=== PATIENT | male | born 1950 | race African-American/Black ===

== ENCOUNTER 2017-04-01 11:38 | Inpatient (IN) | payer MEDICARE ==
[~2017-04-01] VITALS: Ht 180.3 cm; Wt 108.4 kg
[2017-04-01 11:50] VITALS: BP 115/72
[2017-04-01] MEDS ORDERED: ATORVASTATIN CA20 MG ORAL (11:50)
[2017-04-01] MEDS ORDERED: ASPIR 8181 MG ORAL (11:50)
[2017-04-01] MEDS ORDERED: [UNRECOGNIZED DRUG - REMARK] (11:50)
--- NOTE | 2017-04-01 12:03 | Emergency Room Report ---
History of Present Illness General Chief Complaint: General Complaint Source: Patient Present Illness HPI 66-year-old male history of hypertension CAD with one stent p/w lightheadedness /funny feeling in chest for one day. Chest pain started while driving. Patient denies any obvious chest pain however states that when he had his heart attack last time this is how he felt. Complains of mild SOB. Denies palpitations, diaphoresis, n/v. Denies any headache, blurry vision, neck pain, has otherwise been eating and drinking well Allergies: Coded Allergies: No Known Allergies (Unverified , 04/01/17) Patient History Past Medical History: see triage record Past Surgical History: none Pertinent Family History: none Reviewed Nursing Documentation: PMH: Agreed, PSxH: Agreed Nursing Documentation-PMH Hx Cardiac Problems: Yes - [place] 02/2017; Stent Hx Hypertension: Yes Review of Systems All Other Systems: negative except mentioned in HPI Physical Exam Vital Signs Date Time Temp Pulse Resp B/P (MAP) Pulse Ox O2 Delivery O2 Flow Rate FiO2 04/01/17 11:44 98.1 79 18 115/72 100 Room Air Sp02 EP Interpretation: reviewed, normal General Appearance: normal inspection, well appearing, no apparent distress, alert, GCS 15, non-toxic Head: normocephalic, atraumatic Eyes: bilateral eye normal inspection, bilateral eye PERRL, bilateral eye EOMI ENT: normal ENT inspection, normal pharynx, normal voice, moist mucus membranes Neck: normal inspection, full range of motion, supple Respiratory: normal inspection, lungs clear, normal breath sounds, no respiratory distress, no retraction, no wheezing, speaking full sentences, chest symmetrical Cardiovascular #1: normal inspection, regular rate, rhythm, no edema, normal capillary refill Cardiovascular #2: 2+ radial (R), 2+ radial (L) Gastrointestinal: normal inspection, non tender, soft, non-distended, no guarding Genitourinary: no CVA tenderness Musculoskeletal: normal inspection, back normal, normal range of motion, non- tender Neurologic: normal inspection, alert, oriented x3, responsive, motor strength/ tone normal, sensory intact, normal gait, speech normal Psychiatric: normal inspection, judgement/insight normal, memory normal Skin: normal inspection, normal color, no rash, warm/dry, well hydrated, normal turgor Medical Decision Making Diagnostic Impression: Primary Impression: ACS (acute coronary syndrome) ER Course 66-year-old male with a CAD presenting with lightheadedness and"funny feeling in chest" DDX: ACS vs. CHF vs. pneumonia vs. gastritis/GERD vs. pneumothorax Dehydrational / electrolyte disturbance Plan: IV access, obtain labs including troponin, EKG, CXR ASA 162 (took a baby asa) Anticipate admission ER course: Labs: troponin negative Patient given ASA. Patient remained chest pain free during ED stay. Disposition: Patient will be admitted to telemetry unit Please note that this Emergency Department Report was dictated using [email or web address] [email or web address] software, occasionally this can lead to erroneous entry secondary to interpretation by the dictation equipment. Laboratory Tests Test 04/01/17 12:05 04/01/17 13:35 Sodium Level 141 mEQ/L (135-145) Potassium Level 4.7 mEQ/L (3.4-4.9) Chloride Level 102 mEQ/L (98-107) Carbon Dioxide Level 24 mEQ/L (20-30) Anion Gap 15 (5-15) Blood Urea Nitrogen 8 mg/dL (7-23) Creatinine 1.2 mg/dL (0.7-1.2) Estimate Glomerular Filtration Rate > 60 mL/min (>60) Glucose Level 110 mg/dL (74-106) H Calcium Level 9.3 mg/dL (8.6-10.2) Total Bilirubin 1.0 mg/dL (0.0-1.2) Aspartate Amino Transferase (AST) 20 U/L (5-40) Alanine Aminotransferase (ALT) 13 U/L (3-41) Alkaline Phosphatase 77 U/L (40-129) Total Creatine Kinase 236 U/L (38-174) H Creatine Kinase MB 3.3 ng/mL (< 6.7) Creatine Kinase MB Relative Index 1.3 Troponin I < 0.30 ng/mL (<=0.30) < 0.30 ng/mL (<=0.30) Pro-B-Type Natriuretic Peptide 207 pg/mL (0-125) H Total Protein 7.1 g/dL (6.6-8.7) Albumin 5.1 g/dL (3.5-5.2) Globulin 2.0 g/dL Albumin/Globulin Ratio 2.5 (1.0-2.7) White Blood Count 6.5 K/UL (4.8-10.8) Red Blood Count 4.77 M/UL (4.70-6.10) Hemoglobin 14.5 G/DL (14.2-18.0) Hematocrit 44.8 % (42.0-52.0) Mean Corpuscular Volume 94 FL (80-99) Mean Corpuscular Hemoglobin 30.3 PG (27.0-31.0) Mean Corpuscular Hemoglobin Concent 32.3 G/DL (32.0-36.0) Red Cell Distribution Width 12.5 % (11.6-14.8) Platelet Count 151 K/UL (150-450) Mean Platelet Volume 8.5 FL (6.5-10.1) Neutrophils (%) (Auto) 59.9 % (45.0-75.0) Lymphocytes (%) (Auto) 28.4 % (20.0-45.0) Monocytes (%) (Auto) 9.4 % (1.0-10.0) Eosinophils (%) (Auto) 1.2 % (0.0-3.0) Basophils (%) (Auto) 1.2 % (0.0-2.0) EKG Diagnostic Results Rate: normal Rhythm: NSR ST Segments: other - +PVCs, Q waves inf leads, L axis devation ASA given to the pt in ED: Yes Rhythm Strip Diag. Results EP Interpretation: yes Rate: 76 Rhythm: NSR, other - +PVCs Chest X-Ray Diagnostic Results Chest X-Ray Diagnostic Results : Chest X-Ray Ordered: Yes # of Views/Limited/Complete: 1 View Indication: Chest Pain EP Interpretation: Yes Interpretation: no consolidation, no effusion, no pneumothorax, no acute cardiopulmonary disease Impression: No acute disease Electronically Signed by: Electronically signed by Albertina Valerio MD Last Vital Signs Date Time Temp Pulse Resp B/P (MAP) Pulse Ox O2 Delivery O2 Flow Rate FiO2 04/01/17 11:44 98.1 79 18 115/72 100 Room Air Albertina Valerio M.D. Apr 01, 2017 12:03
[2017-04-01] MEDS ORDERED: Aspirin Baby 81mg ORAL ONE (12:15)
--- NOTE | 2017-04-01 12:19 | Diagnostic Imaging Report ---
Indication: PAIN Technique: One view of the chest Comparison: none Findings: Lungs and pleural spaces are clear. Heart size is normal Impression: No acute process
[2017-04-01 13:03] LABS: TROPONIN I < 0.30 ng/mL (<=0.30)
[2017-04-01 13:06] LABS: ALANINE AMINOTRANSFERASE 13 U/L (3-41); ALBUMIN/GLOBULIN RATIO 2.5 (1.0-2.7); ANION GAP 15 (5-15); ASPARTATE AMINO TRANSFERASE 20 U/L (5-40); CALCIUM 9.3 mg/dL (8.6-10.2); CARBON DIOXIDE 24 mEQ/L (20-30); CHLORIDE 102 mEQ/L (98-107); CREATININE 1.2 mg/dL (0.7-1.2); GLOMERULAR FILTRATION RATE > 60 mL/min (>60); HEMOLYSIS 84; POTASSIUM 4.7 mEQ/L (3.4-4.9); SODIUM 141 mEQ/L (135-145); TOTAL PROTEIN 7.1 g/dL (6.6-8.7)
[2017-04-01 13:16] LABS: CKMB 3.3 ng/mL (< 6.7)
[2017-04-01] MEDS ORDERED: Miralax 17gm pkt ORAL PRN (13:45)
[2017-04-01] MEDS ORDERED: Nitroglycerin Subl 0.4mg tab SL PRN (13:45)
[2017-04-01 13:50] VITALS: BP 112/73
[2017-04-01] MEDS ORDERED: DuoNeb 0.5-3(2.5)mg/3ml neb HHN PRN (14:00)
[2017-04-01] MEDS ORDERED: Enalaprilat 2.5mg/2ml Inj IV PRN (14:00)
[2017-04-01] MEDS ORDERED: Ketorolac 30mg Inj IV PRN (14:00)
[2017-04-01] MEDS ORDERED: Diltiazem 25mg/5ml IV PRN (14:00)
[2017-04-01] MEDS ORDERED: Morphine Sulfate 2mg/ml Inj IVP PRN (14:00)
[2017-04-01 14:09] LABS: BASOPHILS % (AUTO) 1.2 % (0.0-2.0); EOSINOPHILS % (AUTO) 1.2 % (0.0-3.0); LYMPHOCYTES % (AUTO) 28.4 % (20.0-45.0); MEAN CORPUSCULAR HEMOGLOBIN 30.3 PG (27.0-31.0); MEAN CORPUSCULAR HGB CONC 32.3 G/DL (32.0-36.0); MEAN CORPUSCULAR VOLUME 94 FL (80-99); MEAN PLATELET VOLUME 8.5 FL (6.5-10.1); MONOCYTES % (AUTO) 9.4 % (1.0-10.0); NEUTROPHILS % (AUTO) 59.9 % (45.0-75.0); PLATELET COUNT 151 K/UL (150-450); RED BLOOD COUNT 4.77 M/UL (4.70-6.10); RED CELL DISTRIBUTION WIDTH 12.5 % (11.6-14.8); WHITE BLOOD COUNT 6.5 K/UL (4.8-10.8)
[2017-04-01 14:22] LABS: TROPONIN I < 0.30 ng/mL (<=0.30)
[2017-04-01 14:55] VITALS: BP 136/86
[2017-04-01 16:00] VITALS: BP 119/73
[2017-04-01 20:07] VITALS: BP 104/70
[2017-04-01] MEDS: Heparin 5000 units/ml inj SUBQ SCH (21:00)
[2017-04-01] MEDS ORDERED: Atorvastatin 20mg tab ORAL SCH (21:00)
[2017-04-01] MEDS ORDERED: TURMERIC 500 M1 EACH PO (21:29)
[2017-04-01] MEDS ORDERED: PLAVIX75 MG ORAL (21:29)
[2017-04-01] MEDS ORDERED: LIPITOR40 MG ORAL (21:29)
[2017-04-01] MEDS ORDERED: LOSARTAN POTASS50 MG ORAL (21:29)
--- NOTE | 2017-04-01 22:03 | History and Physical ---
History of Present Illness General Date patient seen: Apr 01, 2017 Reason for Hospitalization: General Complaint Present Illness HPI 66-year-old male history of hypertension CAD with one stent p/w lightheadedness /funny feeling in chest for one day. Patient denies any obvious chest pain however states that when he had his heart attack last time this is how he felt. Complains of mild SOB. Denies palpitations, diaphoresis, n/v. He is admitted to telemetry for further management. Allergies: Coded Allergies: No Known Allergies (Unverified , 04/01/17) Medication History Scheduled Aspirin* (Aspir 81*), 81 MG ORAL DAILY, (Reported) Atorvastatin Calcium* (Atorvastatin Calcium*), 20 MG ORAL DAILY, (Reported) Atorvastatin Calcium* (Lipitor*), 40 MG ORAL BEDTIME, (Reported) Clopidogrel Bisulfate* (Plavix*), 75 MG ORAL DAILY, (Reported) Losartan Potassium* (Losartan Potassium*), 50 MG ORAL DAILY, (Reported) Miscellaneous Medications Turmeric/Turmeric Root Extract (Turmeric 500 Mg Capsule), 1 EACH PO, (Reported) ["New anticoagulant"], (Reported) Patient History Healthcare decision maker self Resuscitation status Full Code Advanced Directive on File Past Medical/Surgical History Past Medical/Surgical History: (1) CAD (coronary artery disease) (2) Stented coronary artery Review of Systems All Other Systems: negative except mentioned in HPI Physical Exam General Appearance: WD/WN Lines, tubes and drains: peripheral HEENT: normocephalic, atraumatic Neck: non-tender, normal alignment Respiratory/Chest: chest wall non-tender, lungs clear Breasts: no masses Cardiovascular/Chest: normal peripheral pulses, normal rate Genitourinary/Rectal: normal genital exam Extremities: normal range of motion Last 24 Hour Vital Signs Date Time Temp Pulse Resp B/P (MAP) Pulse Ox O2 Delivery O2 Flow Rate FiO2 04/01/17 20:07 97.3 63 20 104/70 100 Room Air 04/01/17 16:00 76 04/01/17 16:00 97.3 79 20 119/73 100 Room Air 04/01/17 15:05 66 11 136/86 Room Air 04/01/17 14:55 98.3 66 11 136/86 100 Room Air 04/01/17 13:50 98.2 74 16 112/73 100 Room Air 04/01/17 11:50 98.2 82 16 115/72 100 Room Air 04/01/17 11:44 98.1 79 18 115/72 100 Room Air Intake and Output 04/01/17 04/02/17 19:00 07:00 Intake Total 0 ml Balance 0 ml Intake Oral 0 ml # Voids 1 Laboratory Tests Test 04/01/17 12:05 04/01/17 13:35 Sodium Level 141 mEQ/L (135-145) Potassium Level 4.7 mEQ/L (3.4-4.9) Chloride Level 102 mEQ/L (98-107) Carbon Dioxide Level 24 mEQ/L (20-30) Anion Gap 15 (5-15) Blood Urea Nitrogen 8 mg/dL (7-23) Creatinine 1.2 mg/dL (0.7-1.2) Estimat Glomerular Filtration Rate > 60 mL/min (>60) Glucose Level 110 mg/dL (74-106) H Calcium Level 9.3 mg/dL (8.6-10.2) Total Bilirubin 1.0 mg/dL (0.0-1.2) Aspartate Amino Transf (AST/SGOT) 20 U/L (5-40) Alanine Aminotransferase (ALT/SGPT) 13 U/L (3-41) Alkaline Phosphatase 77 U/L (40-129) Total Creatine Kinase 236 U/L (38-174) H Creatine Kinase MB 3.3 ng/mL (< 6.7) Creatine Kinase MB Relative Index 1.3 Troponin I < 0.30 ng/mL (<=0.30) < 0.30 ng/mL (<=0.30) Pro-B-Type Natriuretic Peptide 207 pg/mL (0-125) H Total Protein 7.1 g/dL (6.6-8.7) Albumin 5.1 g/dL (3.5-5.2) Globulin 2.0 g/dL Albumin/Globulin Ratio 2.5 (1.0-2.7) White Blood Count 6.5 K/UL (4.8-10.8) Red Blood Count 4.77 M/UL (4.70-6.10) Hemoglobin 14.5 G/DL (14.2-18.0) Hematocrit 44.8 % (42.0-52.0) Mean Corpuscular Volume 94 FL (80-99) Mean Corpuscular Hemoglobin 30.3 PG (27.0-31.0) Mean Corpuscular Hemoglobin Concent 32.3 G/DL (32.0-36.0) Red Cell Distribution Width 12.5 % (11.6-14.8) Platelet Count 151 K/UL (150-450) Mean Platelet Volume 8.5 FL (6.5-10.1) Neutrophils (%) (Auto) 59.9 % (45.0-75.0) Lymphocytes (%) (Auto) 28.4 % (20.0-45.0) Monocytes (%) (Auto) 9.4 % (1.0-10.0) Eosinophils (%) (Auto) 1.2 % (0.0-3.0) Basophils (%) (Auto) 1.2 % (0.0-2.0) Height (Feet): 5 Height (Inches): 11.00 Weight (Pounds): 239 Medications Current Medications Medications (Trade) Dose Ordered Sig/Michaela Route PRN Reason Start Time Stop Time Status Last Admin Dose Admin Acetaminophen (Tylenol) 650 mg Q4H PRN ORAL FEVER>100.5 04/01/17 13:45 05/01/17 13:44 Albuterol/ Ipratropium (DuoNeb 0.5-3(2.5)mg/3ml) 3 ml Q4H PRN HHN Shortness of Breath 04/01/17 14:00 04/06/17 13:59 Aspirin (ASA) 162 mg DAILY ORAL 04/02/17 09:00 05/02/17 08:59 Atorvastatin Calcium (Lipitor) 20 mg BEDTIME ORAL 04/01/17 21:00 05/01/17 20:59 Diltiazem HCl (Cardizem) 10 mg Q1H PRN IV heart rate more than 120, 04/01/17 14:00 05/01/17 13:59 Enalaprilat (Vasotec) 2.5 mg Q6H PRN IV sbp more than 160 04/01/17 14:00 05/01/17 13:59 Heparin Sodium (Porcine) (Heparin 5000 units/ml) 5,000 units EVERY 12 HOURS SUBQ 04/01/17 21:00 05/01/17 20:59 Ketorolac Tromethamine (Toradol 30mg) 30 mg Q6H PRN IV moderate pain ( 4-6) 04/01/17 14:00 04/06/17 13:59 Morphine Sulfate (Morphine Sulfate) 2 mg Q4H PRN IVP severe Pain (Pain Scale 7-10) 04/01/17 14:00 04/08/17 13:59 Nitroglycerin (Ntg) 0.4 mg Q5M PRN SL Prn Chest Pain 04/01/17 13:45 05/01/17 13:44 Ondansetron HCl (Zofran) 4 mg Q6H PRN IVP Nausea & Vomiting 04/01/17 13:45 05/01/17 13:44 Pantoprazole (Protonix) 40 mg ACBREAKFAST ORAL 04/02/17 09:00 05/02/17 08:59 Polyethylene Glycol (Miralax) 17 gm DAILYPRN PRN ORAL Constipation 04/01/17 13:45 05/01/17 13:44 Temazepam (Restoril) 15 mg HSPRN PRN ORAL Insomnia 04/01/17 21:00 04/08/17 20:59 Assessment/Plan Problem List: (1) ACS (acute coronary syndrome) ICD Codes: I24.9 - Acute ischemic heart disease, unspecified SNOMED: 358246780 (2) CAD (coronary artery disease) ICD Codes: I25.10 - Atherosclerotic heart disease of [place]reafski coronary artery without angina pectoris SNOMED: 43170789 (3) Stented coronary artery ICD Codes: Z95.5 - Presence of coronary angioplasty implant and graft SNOMED: 82229424, 013499766 (4) Costochondritis ICD Codes: M94.0 - Chondrocostal junction syndrome [Tietze] SNOMED: 04237764 Assessment/Plan serial ekg, troponin echo cardio evaluation monitor bp IVETTTRENTON MERCHANTFABIO Apr 01, 2017 22:03
[2017-04-02 00:25] VITALS: BP 119/69
[2017-04-02 04:00] VITALS: BP 109/71
[2017-04-02 07:09] LABS: BASOPHILS % (AUTO) 1.4 % (0.0-2.0); EOSINOPHILS % (AUTO) 1.7 % (0.0-3.0); LYMPHOCYTES % (AUTO) 34.3 % (20.0-45.0); MEAN CORPUSCULAR HGB CONC 32.9 G/DL (32.0-36.0); MEAN CORPUSCULAR VOLUME 94 FL (80-99); MEAN PLATELET VOLUME 8.9 FL (6.5-10.1); MONOCYTES % (AUTO) 12.2 % (1.0-10.0); NEUTROPHILS % (AUTO) 50.4 % (45.0-75.0); PLATELET COUNT 133 K/UL (150-450); RED BLOOD COUNT 4.43 M/UL (4.70-6.10); RED CELL DISTRIBUTION WIDTH 12.5 % (11.6-14.8); WHITE BLOOD COUNT 6.2 K/UL (4.8-10.8)
[2017-04-02 07:27] LABS: CHOLESTEROL 109 mg/dL (< 200); CHOLESTEROL/HDL RATIO 2.5 (3.3-4.4); CRP QUANT < 0.3 mg/dL (< 0.5); HEMOLYSIS 8; LDL CHOLESTEROL (CALC.) 52 mg/dL (60-99)
[2017-04-02 07:39] LABS: PROTHROMBIN TIME 10.3 SEC (9.30-11.50)
[2017-04-02 07:45] LABS: TROPONIN I < 0.30 ng/mL (<=0.30)
[2017-04-02 07:48] LABS: THYROID STIMULATING HORMONE 0.811 uIU/mL (0.300-4.500)
[2017-04-02 08:00] VITALS: BP 105/65
[2017-04-02] MEDS: Heparin 5000 units/ml inj SUBQ SCH (09:00)
[2017-04-02] MEDS ORDERED: Aspirin Baby 81mg ORAL SCH (09:00)
[2017-04-02 12:00] VITALS: BP 121/69
--- NOTE | 2017-04-02 12:31 | Pulmonology Progress Note ---
Assessment/Plan Problems: (1) ACS (acute coronary syndrome) (2) CAD (coronary artery disease) (3) Stented coronary artery (4) Costochondritis Assessment/Plan enzymes are negative echo done results pending monitor bp awaiting cardiology resume Plavix Subjective ROS Limited/Unobtainable: No Interval Events: no ne events. Allergies: Coded Allergies: No Known Allergies (Unverified , 04/01/17) Objective Last 24 Hour Vital Signs Date Time Temp Pulse Resp B/P (MAP) Pulse Ox O2 Delivery O2 Flow Rate FiO2 04/02/17 12:00 97.0 79 21 121/69 98 Room Air 04/02/17 09:00 57 04/02/17 08:00 97.5 58 20 105/65 97 Room Air 04/02/17 07:57 58 20 Room Air 04/02/17 04:00 55 04/02/17 04:00 97.7 65 20 109/71 100 Room Air 04/02/17 00:25 97.0 72 20 119/69 99 Room Air 04/02/17 00:00 64 04/01/17 20:07 97.3 63 20 104/70 100 Room Air 04/01/17 20:00 66 04/01/17 19:30 60 20 Room Air 04/01/17 16:00 76 04/01/17 16:00 97.3 79 20 119/73 100 Room Air 04/01/17 15:05 66 11 136/86 Room Air 04/01/17 14:55 98.3 66 11 136/86 100 Room Air 04/01/17 13:50 98.2 74 16 112/73 100 Room Air General Appearance: WD/WN HEENT: normocephalic, atraumatic Respiratory/Chest: chest wall non-tender, lungs clear Cardiovascular: normal peripheral pulses, normal rate Abdomen: normal bowel sounds, soft, non tender Genitourinary: normal external genitalia Extremities: no clubbing Neurologic/Psychiatric: insole presser II-XII grossly normal, no motor/sensory deficits Lymphatic: no neck adenopathy Laboratory Tests 04/01/17 13:35: White Blood Count 6.5, Red Blood Count 4.77, Hemoglobin 14.5, Hematocrit 44.8, Mean Corpuscular Volume 94, Mean Corpuscular Hemoglobin 30.3, Mean Corpuscular Hemoglobin Concent 32.3, Red Cell Distribution Width 12.5, Platelet Count 151, Mean Platelet Volume 8.5, Neutrophils (%) (Auto) 59.9, Lymphocytes (%) (Auto) 28.4, Monocytes (%) (Auto) 9.4, Eosinophils (%) (Auto) 1.2, Basophils (%) (Auto ) 1.2, Troponin I < 0.30 04/02/17 06:25: White Blood Count 6.2, Red Blood Count 4.43L, Hemoglobin 13.7L, Hematocrit 41.7L , Mean Corpuscular Volume 94, Mean Corpuscular Hemoglobin 31.0, Mean Corpuscular Hemoglobin Concent 32.9, Red Cell Distribution Width 12.5, Platelet Count 133L, Mean Platelet Volume 8.9, Neutrophils (%) (Auto) 50.4, Lymphocytes ( %) (Auto) 34.3, Monocytes (%) (Auto) 12.2H, Eosinophils (%) (Auto) 1.7, Basophils (%) (Auto) 1.4, Troponin I < 0.30, Prothrombin Time 10.3, Prothromb Time International Ratio 1.0, Activated Partial Thromboplast Time 25, C- Reactive Protein, Quantitative < 0.3, Triglycerides Level 69, Cholesterol Level 109, LDL Cholesterol 52L, HDL Cholesterol 43, Cholesterol/HDL Ratio 2.5L, Thyroid Stimulating Hormone (TSH) 0.811 Current Medications Medications (Trade) Dose Ordered Sig/Michaela Route PRN Reason Start Time Stop Time Status Last Admin Dose Admin Acetaminophen (Tylenol) 650 mg Q4H PRN ORAL FEVER>100.5 04/01/17 13:45 05/01/17 13:44 Albuterol/ Ipratropium (DuoNeb 0.5-3(2.5)mg/3ml) 3 ml Q4H PRN HHN Shortness of Breath 04/01/17 14:00 04/06/17 13:59 Aspirin (ASA) 162 mg DAILY ORAL 04/02/17 09:00 05/02/17 08:59 04/02/17 08:40 Atorvastatin Calcium (Lipitor) 20 mg BEDTIME ORAL 04/01/17 21:00 05/01/17 20:59 Atorvastatin Calcium (Lipitor) 20 mg BEDTIME ORAL 04/02/17 21:00 05/02/17 20:59 UNV Atorvastatin Calcium (Lipitor) 40 mg BEDTIME ORAL 04/02/17 21:00 05/02/17 20:59 UNV Clopidogrel Bisulfate (Plavix) 75 mg DAILY ORAL 04/02/17 12:30 05/02/17 12:29 UNV Clopidogrel Bisulfate (Plavix) 75 mg DAILY ORAL 04/03/17 09:00 05/03/17 08:59 UNV Diltiazem HCl (Cardizem) 10 mg Q1H PRN IV heart rate more than 120, 04/01/17 14:00 05/01/17 13:59 Enalaprilat (Vasotec) 2.5 mg Q6H PRN IV sbp more than 160 04/01/17 14:00 05/01/17 13:59 Heparin Sodium (Porcine) (Heparin 5000 units/ml) 5,000 units EVERY 12 HOURS SUBQ 04/01/17 21:00 05/01/17 20:59 Ketorolac Tromethamine (Toradol 30mg) 30 mg Q6H PRN IV moderate pain ( 4-6) 04/01/17 14:00 04/06/17 13:59 Losartan Potassium (Cozaar) 50 mg DAILY ORAL 04/02/17 12:30 05/02/17 12:29 UNV Losartan Potassium (Cozaar) 50 mg DAILY ORAL 04/03/17 09:00 05/03/17 08:59 UNV Morphine Sulfate (Morphine Sulfate) 2 mg Q4H PRN IVP severe Pain (Pain Scale 7-10) 04/01/17 14:00 04/08/17 13:59 Nitroglycerin (Ntg) 0.4 mg Q5M PRN SL Prn Chest Pain 04/01/17 13:45 05/01/17 13:44 Ondansetron HCl (Zofran) 4 mg Q6H PRN IVP Nausea & Vomiting 04/01/17 13:45 05/01/17 13:44 Pantoprazole (Protonix) 40 mg ACBREAKFAST ORAL 04/02/17 09:00 05/02/17 08:59 Polyethylene Glycol (Miralax) 17 gm DAILYPRN PRN ORAL Constipation 04/01/17 13:45 05/01/17 13:44 Temazepam (Restoril) 15 mg HSPRN PRN ORAL Insomnia 04/01/17 21:00 04/08/17 20:59 CHEMA ASHLEY Apr 02, 2017 12:31
[2017-04-02] MEDS ORDERED: Losartan 50mg tab ORAL SCH (13:30)
--- NOTE | 2017-04-02 15:29 | Cardiology Progress Note ---
Assessment/Plan Assessment/Plan cad no sx to suggest acs all torp neg no sx similar to angel luis jimenesw with electroencephalograph technician [id number] Objective Last 24 Hour Vital Signs Date Time Temp Pulse Resp B/P (MAP) Pulse Ox O2 Delivery O2 Flow Rate FiO2 04/02/17 13:33 121/69 04/02/17 12:00 97.0 79 21 121/69 98 Room Air 04/02/17 09:00 57 04/02/17 08:00 97.5 58 20 105/65 97 Room Air 04/02/17 07:57 58 20 Room Air 21 04/02/17 04:00 55 04/02/17 04:00 97.7 65 20 109/71 100 Room Air 04/02/17 00:25 97.0 72 20 119/69 99 Room Air 04/02/17 00:00 64 04/01/17 20:07 97.3 63 20 104/70 100 Room Air 04/01/17 20:00 66 04/01/17 19:30 60 20 Room Air 04/01/17 16:00 76 04/01/17 16:00 97.3 79 20 119/73 100 Room Air Laboratory Tests Test 04/02/17 06:25 White Blood Count 6.2 K/UL (4.8-10.8) Red Blood Count 4.43 M/UL (4.70-6.10) L Hemoglobin 13.7 G/DL (14.2-18.0) L Hematocrit 41.7 % (42.0-52.0) L Mean Corpuscular Volume 94 FL (80-99) Mean Corpuscular Hemoglobin 31.0 PG (27.0-31.0) Mean Corpuscular Hemoglobin Concent 32.9 G/DL (32.0-36.0) Red Cell Distribution Width 12.5 % (11.6-14.8) Platelet Count 133 K/UL (150-450) L Mean Platelet Volume 8.9 FL (6.5-10.1) Neutrophils (%) (Auto) 50.4 % (45.0-75.0) Lymphocytes (%) (Auto) 34.3 % (20.0-45.0) Monocytes (%) (Auto) 12.2 % (1.0-10.0) H Eosinophils (%) (Auto) 1.7 % (0.0-3.0) Basophils (%) (Auto) 1.4 % (0.0-2.0) Prothrombin Time 10.3 SEC (9.30-11.50) Prothromb Time International Ratio 1.0 (0.9-1.1) Activated Partial Thromboplast Time 25 SEC (23-33) Troponin I < 0.30 ng/mL (<=0.30) C-Reactive Protein, Quantitative < 0.3 mg/dL (< 0.5) Triglycerides Level 69 mg/dL (< 150) Cholesterol Level 109 mg/dL (< 200) LDL Cholesterol 52 mg/dL (60-99) L HDL Cholesterol 43 mg/dL (> 60) Cholesterol/HDL Ratio 2.5 (3.3-4.4) L Thyroid Stimulating Hormone (TSH) 0.811 uIU/mL (0.300-4.500) CURT ROB Apr 02, 2017 15:29
[2017-04-02 16:00] VITALS: BP 106/66
[2017-04-02] MEDS ORDERED: Atorvastatin 80mg tab ORAL SCH (21:00)
[2017-04-02] MEDS ORDERED: Atorvastatin 20mg tab ORAL SCH (21:00)
[2017-04-03] MEDS ORDERED: Losartan 50mg tab ORAL SCH (09:00)
--- NOTE | 2017-04-03 09:45 | Consultation ---
DATE OF CONSULTATION: 04/02/2017 CONSULTING PHYSICIAN: Justin Huizar M.D. REFERRING PHYSICIAN: Gerda Rudolph M.D. REASON FOR REFERRAL: Coronary disease. History Of Present Illness: This is a 66-year-old gentleman, who presented to the emergency room while driving to his doctor's office to get a paper to take to to get a referral to a money market dealer as a followup. On the way down here, he was not feeling right. He was concerned, so he pulled up to the drive in the emergency room and he was subsequently admitted. He really does not have any pain, pressure, tightness, or heaviness in his chest. In fact, a month ago or so, he was driving and he developed some abnormal sensation and subsequently had some tightness and heaviness in his chest. He drove in to the [facility] and asked for help. Paramedics were summoned. They told him he was having a heart attack and apparently was taken to the emergency room at [facility] where he subsequently underwent placement of two stents and he was discharged in combination of aspirin, statins, as well as Brilinta, which he has been compliant with. At this time, he has not had any chest pain, pressure, tightness, heaviness, or whatsoever in his chest. He just felt very anxious about his situation and wanted to be . He is fine right now. There is no PND. No orthopnea. No palpitation. No dizziness or lightheadedness. Past Medical History: Positive for coronary artery disease as mentioned with coronary artery stenting. No history of [place]. No diabetes. He may have had some high blood pressure. He may have had some high cholesterol. No cancer, stroke, hepatitis, tuberculosis, asthma, or emphysema. No ulcers, kidney problems, liver problems, thyroid problems, anemia, arthritis, blood clots, human immunodeficiency virus, AIDS, prostate, or any other problems. He has had a history of tonsillitis previously and he has had some jaundice previously apparently as well. ALLERGIES: He is not allergic to any medications. Social History: He does not smoke. Does not drink. He works as a sewage plant attendant. Review Of Systems: Gastrointestinal: Negative. Genitourinary: Negative. Pulmonary: Negative. Constitutional: Negative. Neurologic: Negative. PHYSICAL EXAMINATION: General: Shows to be a middle-aged gentleman, in no respiratory distress. Neck: Supple. No jugular venous distention. No abdominojugular reflux. LUNGS: Clear to auscultation and percussion. Cardiac: S1 is normal. S2 is normal. Regular rate and rhythm. No heaves, thrills, gallops, or rubs are noted. ABDOMEN: Soft and nontender. Positive bowel sounds. EXTREMITY: There is no clubbing, cyanosis, nor is there any edema. Neurological: He is awake, alert, and responsive. Moves all four extremities. Laboratory And Diagnostic Data: Electrocardiogram shows normal sinus rhythm with possibly Q waves in the inferior leads, III and aVF, otherwise no other significant abnormalities. There is no ST or T-wave abnormalities. White count 6.3, hemoglobin 13.7, and platelet count up at 133,000. His sodium is 141, potassium 4.7, chloride 102, bicarb 24, BUN of 8, creatinine 1.2, and glucose of 110. His calcium is 9.3. CK of 236. Three sets of cardiac enzymes are all negative. His CRP is normal. His proBNP is only 200. Total cholesterol 109 with a LDL of 52 and HDL of 43. TSH is 0.81. His coags, INR is 1.0 and PTT of 25. He had a chest x-ray performed in the emergency room that showed no acute processes. His telemetry data shows sinus rhythm. He has had some wide complex rhythms, approximately 6 to 7 beats at 2350, otherwise no other significant abnormalities have been noted. ASSESSMENT: 1. Coronary disease history, status post percutaneous coronary intervention. 2. Anxiety. Plan: This patient presented to the hospital not because of symptoms of coronary disease, in fact, he absolutely denies any symptoms similar to what he has had on prior evaluation and the relative diagnosis of his coronary disease and coronary ischemia. He had no symptoms whatsoever. He feels that he was anxious. His three sets of cardiac enzymes were all negative. His EKGs do not show any acute changes. He needs to be back on his aspirin and Brilinta for sure as well as his statins. He was instructed to follow up with the money market dealer that was assigned to him through his insurance company. There is no further acute need for hospitalization as no significant abnormalities have been found and he had recently had a coronary event treated and he has no coronary symptoms at this time. Justin Huizar M.D. DR: MIRNA JOB#: [id number] CC:
--- NOTE | 2017-04-04 07:22 | Discharge Summary ---
Discharge Summary Hospital Course Date of Admission Apr 01, 2017 at 12:51 Date of Discharge Apr 02, 2017 at 17:05 Admitting Diagnosis ACS HPI Tobi Martinez is a 66 year old male who was admitted on Apr 01, 2017 at 12:51 for Acute Coronary Syndrome Hospital Course [id number] Discharge Discharge Disposition Patient was discharged to Home (01) Discharge Diagnoses: Judith rFederick NP Apr 04, 2017 07:22
--- NOTE | 2017-04-04 16:13 | Cardiology Report ---
APPROVED REPORT EXAM: Two-dimensional and M-mode echocardiogram with Doppler and color Doppler. INDICATION Left ventricular function M-Mode DIMENSIONS IVSd0.9 (0.7-1.1cm)Left Atrium (MM)2.8 (1.6-4.0cm) LVDd5.0 (3.5-5.6cm)Aortic Root3.5 (2.0-3.7cm) PWd1.3 (0.7-1.1cm)Aortic Cusp Exc.1.6 (1.5-2.0cm) LVDs2.7 (2.5-4.0cm) PWs2.0 cm Technically limited and difficult study due to poor acoustical windows. Normal left ventricular chamber size, systolic function and wall motion. Left ventricular ejection fraction estimated to be 55-60%. No evidence of left ventricular hypertrophy. No evidence of pericardial or pleural effusion. All other cardiac chamber sizes are within normal limits. Focal aortic valve sclerosis with adequate cusp excursion. Thickened mitral valve leaflets with normal excursion. Mild mitral annulus and aortic root calcification. Pulmonic valve not well visualized. Normal tricuspid valve structure. IVC is not obtainable. A color flow and spectral Doppler study was performed and revealed: No aortic regurgitation. No mitral regurgitation. Mitral diastolic velocities suggest reduced left ventricular relaxation c/w diastolic dysfunction grade 1. No tricuspid regurgitation.
--- NOTE | 2017-04-05 02:15 | Discharge Summary 2 SIG ---
DATE OF ADMISSION: 04/01/2017 DATE OF DISCHARGE: 04/02/2017 CORRECTIONS CORPORAL: Justin Huizar M.D. Brief Hospital Course: The patient is a 66-year-old male with history of hypertension and coronary artery disease with stent placement, complained of lightheadedness and funny feeling on the chest for one day. He did have some mild shortness of breath, but denied palpitations, diaphoresis, nausea, or vomiting. On evaluation at ED, the patient was given aspirin. Troponin was negative. He was chest pain free during stay at ED, however due to his risks for acute coronary syndrome, the patient was admitted to telemetry for further monitoring. EKG was in normal sinus rhythm with premature ventricular contractions and Q-waves in the inferior leads. Chest x-ray showed no consolidation, no effusion, and no pneumothorax with no acute cardiopulmonary disease. He was evaluated by Dr. Huizar. The patient has been compliant with his aspirin, statin, and Brillinta. Cholesterol panel was checked. LDL was 52 and HDL 43. TSH normal. Telemetry data showed sinus rhythm with wide complex rhythms, otherwise no significant abnormalities. Three troponins have been negative. Symptoms are not similar to prior myocardial infarction attack. He was advised to follow up with early childhood education specialist. Due to rapid unexpected improvement in the patient's symptoms and negative work-up, the patient was discharged home. Advised to follow up with early childhood education specialist. FINAL DIAGNOSES: 1. Coronary artery disease. 2. Anxiety. 3. Costochondritis. Disposition: The patient was discharged home. Follow up with early childhood education specialist in a week. DISCHARGE MEDICATIONS: Refer to med list. ACTIVITY: As tolerated. Gerda Rudolph M.D. I have been assigned to dictate discharge summary on this account and I was not involved in the patient's management. Judith Frederick N.P. DR: TAHIRA JOB#: [id number] CC: ALIDA
== END 2017-04-02 17:05 | disposition home or self-care (01) | DRG 206 ==
LOC: EMR 12:37 → 2E 12:51 → EDBEDREQ 13:05
DX: M94.0 Chondrocostal junction syndrome [Tietze] (principal); I10 Essential (primary) hypertension; Z95.5 Presence of coronary angioplasty implant and graft; F41.9 Anxiety disorder, unspecified; I25.10 Atherosclerotic heart disease of native coronary artery without angina pectoris
CPT/HCPCS: 36415; 71010; 80053; 80061; 82550; 82553; 83880; 84443; 84484; 85025; 85610; 85730; 86140; 93005; 93306; 94664; 99285

== ENCOUNTER 2018-12-08 12:46 | Emergency (ER) | payer SELFPAY ==
[~2018-12-08] VITALS: Ht 180.3 cm; Wt 115.2 kg
[~2018-12-08 12:46] MED LIST: ASPIR 8181 MG ORAL; ATORVASTATIN CA20 MG ORAL; LIPITOR40 MG ORAL; LOSARTAN POTASS50 MG ORAL; PLAVIX75 MG ORAL; TURMERIC 500 M1 EACH PO; [UNRECOGNIZED DRUG - REMARK]
--- NOTE | 2018-12-08 13:00 | NUR ---
CAME IN BY RESCUE WITH COMPLAINTS HE THINK HIS BLOOD PRESSURE IS HIGH . DENIES ANY SYMPTOMS
--- NOTE | 2018-12-08 13:20 | NUR ---
LABS DONE SALINE LOCK IN PLACE .
[2018-12-08 13:33] LABS: APPEARANCE,URINE CLEAR; BILIRUBIN, URINE NEGATIVE (NEGATIVE); COLOR,URINE PALE YELLOW; GLUCOSE, URINE (UA) NEGATIVE (NEGATIVE); KETONES,URINE NEGATIVE (NEGATIVE); LEUKOCYTE ESTERASE ,URINE NEGATIVE (NEGATIVE); NITRITE,URINE NEGATIVE (NEGATIVE); PH,URINE 5 (4.5-8.0); PROTEIN,URINE NEGATIVE (NEGATIVE); UROBILINOGEN,URINE NORMAL MG/DL (0.0-1.0)
[2018-12-08 13:34] LABS: BASOPHILS % (AUTO) 2.3 % (0.0-2.0); HEMATOCRIT 47.9 % (42.0-52.0); HEMOGLOBIN 15.8 G/DL (14.2-18.0); MEAN CORPUSCULAR VOLUME 93 FL (80-99); MONOCYTES % (AUTO) 8.4 % (1.0-10.0); NEUTROPHILS % (AUTO) 51.3 % (45.0-75.0); PLATELET COUNT 200 K/UL (150-450); RED BLOOD COUNT 5.15 M/UL (4.70-6.10); RED CELL DISTRIBUTION WIDTH 12.7 % (11.6-14.8); WHITE BLOOD COUNT 5.9 K/UL (4.8-10.8)
[2018-12-08 13:45] LABS: ANION GAP 7 mmol/L (5-15); BLOOD UREA NITROGEN 12 mg/dL (7-18); CALCIUM 9.5 MG/DL (8.5-10.1); CARBON DIOXIDE 32 MMOL/L (21-32); CHLORIDE 103 MMOL/L (98-107); CREATININE 1.1 MG/DL (0.55-1.30); POTASSIUM 3.6 MMOL/L (3.5-5.1); SODIUM 142 MMOL/L (136-145)
[2018-12-08 13:58] LABS: ALANINE AMINOTRANSFERASE 32 U/L (12-78); ALBUMIN 4.1 G/DL (3.4-5.0); ALKALINE PHOSPHATASE 72 U/L (46-116); ASPARTATE AMINO TRANSFERASE 17 U/L (15-37); BILIRUBIN,TOTAL 0.7 MG/DL (0.2-1.0); CREATINE KINASE 217 U/L (26-308)
[2018-12-08 14:06] VITALS: BP 121/88
--- NOTE | 2018-12-08 14:15 | Emergency Room Report ---
History of Present Illness General Chief Complaint: General Complaint Source: Patient Present Illness HPI Patient presents with blood pressure out of control. He's been taking varying doses of his medication. He alleges that his doctors told him he take it 25, 50 , or 100 mg based on what his blood pressure is. He has some dizziness after taking large doses of this. His blood pressures been already down to 117 at times. He denies any chest pain, headache. He denies any diabetes or renal failure in the past. His blood pressure machine broke and therefore he he's been unable to manage to control that he has in the past. He called paramedics and they transported him. His blood pressure was high. An EKG was performed. It had nonspecific ST-T wave changes. No fevers, chills, chest pain, palpitations, nausea, vomiting, diarrhea, dysuria , abdominal pain, shortness of breath, depression, visual changes, headache. Clear after stent placement he was on Plavix he is no longer taking this medication. He does take baby aspirin. Allergies: Coded Allergies: No Known Allergies (Unverified , 04/01/17) Patient History Past Medical History: see triage record Past Surgical History: PTCA Pertinent Family History: HTN Social History: Denies: smoking, alcohol use, drug use Social History Narrative [place] Reviewed Nursing Documentation: PMH: Agreed; PSxH: Agreed Nursing Documentation-PMH Hx Cardiac Problems: Yes - [place] 02/2017; Stent Hx Hypertension: Yes Review of Systems All Other Systems: negative except mentioned in HPI Physical Exam Vital Signs Date Time Temp Pulse Resp B/P (MAP) Pulse Ox O2 Delivery O2 Flow Rate FiO2 12/08/18 12:41 98.1 78 18 151/103 (119) 98 Room Air Sp02 EP Interpretation: reviewed, normal General Appearance: well appearing, no apparent distress, GCS 15 Head: normocephalic, atraumatic Eyes: bilateral eye normal inspection, bilateral eye PERRL, bilateral eye EOMI ENT: moist mucus membranes Neck: supple Respiratory: lungs clear, normal breath sounds Cardiovascular #1: regular rate, rhythm Cardiovascular #2: 2+ radial (R) Gastrointestinal: normal inspection, normal bowel sounds, non tender, no mass, non-distended, overweight Genitourinary: no CVA tenderness Musculoskeletal: back normal, gait/station normal, normal range of motion Neurologic: alert, oriented x3, grossly normal Psychiatric: anxious Skin: normal inspection, warm/dry Medical Decision Making Diagnostic Impression: Primary Impression: HTN (hypertension) Qualified Codes: I10 - Essential (primary) hypertension ER Course Patient presents with variable compliance with his blood pressure medication and not staying on a constant dose. Patient needs to be evaluated for possible acute myocardial infarction, renal failure and electrolyte abnormalities. He' ll be observed on a cardiac monitor technician. Clearly he needs to be unstable dose of antihypertensives. EKG with no acute changes. Chest x-ray no infiltrates and normal heart size. Labs unremarkable. Without treatment blood pressure is come down. Patient still remains asymptomatic. Patient was advised not to micromanage his blood pressure. In addition he was advised to follow-up with his detective private eye and his primary care doctor. No medical emergency at this time. Patient stable for outpatient observation and treatment. Laboratory Tests Test 12/08/18 13:00 12/08/18 13:05 Urine Color Pale yellow Urine Appearance Clear Urine pH 5 (4.5-8.0) Urine Specific [place] 1.015 (1.005-1.035) Urine Protein Negative (NEGATIVE) Urine Glucose (UA) Negative (NEGATIVE) Urine Ketones Negative (NEGATIVE) Urine Blood Negative (NEGATIVE) Urine Nitrite Negative (NEGATIVE) Urine Bilirubin Negative (NEGATIVE) Urine Urobilinogen Normal MG/DL (0.0-1.0) Urine Leukocyte Esterase Negative (NEGATIVE) Urine Opiates Screen Negative (NEGATIVE) Urine Barbiturates Screen Negative (NEGATIVE) Phencyclidine (PCP) Screen Negative (NEGATIVE) Urine Amphetamines Screen Negative (NEGATIVE) Urine Benzodiazepines Screen Negative (NEGATIVE) Urine Cocaine Screen Negative (NEGATIVE) Urine Marijuana (THC) Screen Negative (NEGATIVE) White Blood Count 5.9 K/UL (4.8-10.8) Red Blood Count 5.15 M/UL (4.70-6.10) Hemoglobin 15.8 G/DL (14.2-18.0) Hematocrit 47.9 % (42.0-52.0) Mean Corpuscular Volume 93 FL (80-99) Mean Corpuscular Hemoglobin 30.8 PG (27.0-31.0) Mean Corpuscular Hemoglobin Concent 33.1 G/DL (32.0-36.0) Red Cell Distribution Width 12.7 % (11.6-14.8) Platelet Count 200 K/UL (150-450) Mean Platelet Volume 7.9 FL (6.5-10.1) Neutrophils (%) (Auto) 51.3 % (45.0-75.0) Lymphocytes (%) (Auto) 36.0 % (20.0-45.0) Monocytes (%) (Auto) 8.4 % (1.0-10.0) Eosinophils (%) (Auto) 2.0 % (0.0-3.0) Basophils (%) (Auto) 2.3 % (0.0-2.0) H Prothrombin Time 10.3 SEC (9.30-11.50) Prothrombin Time INR 1.0 (0.9-1.1) PTT 24 SEC (23-33) Sodium Level 142 MMOL/L (136-145) Potassium Level 3.6 MMOL/L (3.5-5.1) Chloride Level 103 MMOL/L (98-107) Carbon Dioxide Level 32 MMOL/L (21-32) Anion Gap 7 mmol/L (5-15) Blood Urea Nitrogen 12 mg/dL (7-18) Creatinine 1.1 MG/DL (0.55-1.30) Estimate Glomerular Filtration Rate > 60 mL/min (>60) Glucose Level 127 MG/DL (74-106) H Calcium Level 9.5 MG/DL (8.5-10.1) Total Bilirubin 0.7 MG/DL (0.2-1.0) Aspartate Amino Transferase (AST) 17 U/L (15-37) Alanine Aminotransferase (ALT) 32 U/L (12-78) Alkaline Phosphatase 72 U/L (46-116) Total Creatine Kinase 217 U/L (26-308) Troponin I 0.004 ng/mL (0.000-0.056) Pro-B-Type Natriuretic Peptide 24 pg/mL (0-125) Total Protein 8.1 G/DL (6.4-8.2) Albumin 4.1 G/DL (3.4-5.0) Globulin 4.0 g/dL Albumin/Globulin Ratio 1.0 (1.0-2.7) EKG Diagnostic Results Rate: normal Rhythm: NSR ST Segments: no acute changes - Left axis deviation, nonspecific ST T wave changes Rhythm Strip Diag. Results EP Interpretation: yes Rhythm: NSR, no PVC's, no ectopy Chest X-Ray Diagnostic Results Chest X-Ray Diagnostic Results : Chest X-Ray Ordered: Yes # of Views/Limited/Complete: 1 View Indication: Other EP Interpretation: Yes Interpretation: no consolidation, no effusion, no pneumothorax Impression: No acute disease Electronically Signed by: Electronically signed by Pradeep Moss MD Last Vital Signs Date Time Temp Pulse Resp B/P (MAP) Pulse Ox O2 Delivery O2 Flow Rate FiO2 12/08/18 15:39 98.1 76 24 143/88 98 Room Air Status: improved Disposition: HOME, SELF-CARE Condition: Improved Pradeep Moss MD December 08, 2018 14:15
[2018-12-08 15:39] VITALS: BP 143/88
--- NOTE | 2018-12-08 15:39 | NUR ---
ER DISCHARGE NOTE: Patient is cleared to be discharged per ERMD Dr Moss, pt is aox4, on room air, with stable vital signs. pt was given dc instructions, pt was able to verbalize understanding, pt id band and iv site removed without complications. pt is able to ambulate with steady gait. pt took all belongings.
--- NOTE | 2018-12-09 10:47 | Diagnostic Imaging Report ---
Indication: Chest pain Comparison: 04/01/2017 A single view chest radiograph was obtained. Findings: Cardiomediastinal appearance is within normal limits for age. The lungs are clear. Pulmonary vascularity is appropriate. The diaphragmatic contour is smooth and costophrenic angles are sharp. No pleural effusions are identified. The bones are unremarkable. Impression: No acute findings
--- NOTE | 2018-12-09 16:02 | Cardiology Report ---
APPROVED REPORT EKG Measurement Heart [id number] Sinus rhythm with 1st degree AV block Left axis deviation Possible Lateral infarct, age undetermined Inferior infarct, age undetermined Abnormal ECG
== END 2018-12-08 15:39 | disposition home or self-care (01) ==
LOC: EDBD 12:46 → EMR 12:50
DX: I10 Essential (primary) hypertension (principal); Z95.5 Presence of coronary angioplasty implant and graft; I25.2 Old myocardial infarction; Z98.61 Coronary angioplasty status; Z79.82 Long term (current) use of aspirin; E66.3 Overweight; Z68.35 Body mass index [BMI] 35.0-35.9, adult; I44.0 Atrioventricular block, first degree
CPT/HCPCS: 36415; 71045; 80053; 80307; 81003; 82550; 83880; 84484; 85025; 85610; 85730; 93005; 99284